=== PATIENT | female | born 1960 | race Caucasian/White ===

== ENCOUNTER 2016-06-15 22:47 | Emergency (ER) | payer OTHER ==
[~2016-06-15 22:47] MED LIST: ASP325 PO; BENZEPRIL PO; GLU500 PO; LASIX; NITROSTAT SL; PROSUD; VIC PO; ZIT250 PO; [UNRECOGNIZED DRUG - CODE]
[2016-06-15 23:33] LABS: BASOPHIL % 1.3 % (0-2); PLATELET COUNT 298 x10^3mcL (130-400); RED CELL DISTRIBUTION WIDTH 14.1 % (11.5-14.5)
[2016-06-15 23:42] LABS: CALCIUM 8.9 mg/dL (8.5-10.1); CHLORIDE SERUM 99 mmol/L (98-107); GFR1 > 60 mL/min; GLUCOSE SERUM 114 mg/dL (74-106); POTASSIUM SERUM 3.8 mmol/L (3.5-5.1); SODIUM SERUM 139 mmol/L (136-145)
[2016-06-15 23:58] LABS: ALBUMIN 3.8 g/dL (3.4-5.0); ALKALINE PHOSPHATASE 91 U/L (46-116); ALT/SGPT 14 U/L (14-59); AMYLASE 63 U/L (25-115); AST/SGOT 10 U/L (15-37); BILIRUBIN TOTAL 0.2 mg/dL (0.20-1.00); LIPASE 86 IU/L (73-393); TOTAL PROTEIN, SERUM 7.3 g/dL (6.4-8.2)
[2016-06-16 00:11] LABS: microscopic required? NO
[2016-06-16 00:20] LABS: UA SPECIFIC GRAVITY 1.025 (1.005-1.035); urine erythrocyte NEGATIVE (NEGATIVE)
[2016-06-16 02:51] VITALS: BP 129/59
== END 2016-06-16 02:51 | disposition home or self-care (01) ==
LOC: ED 22:47
PROVIDERS: Emergency Medicine
DX: F41.1 Generalized anxiety disorder (principal); D25.9 Leiomyoma of uterus, unspecified; R10.9 Unspecified abdominal pain; E11.9 Type 2 diabetes mellitus without complications; Z86.73 Personal history of transient ischemic attack (TIA), and cerebral infarction without residual deficits
CPT/HCPCS: 83880; J1885; Q0162

== ENCOUNTER 2016-07-10 22:09 | Emergency (ER) | payer OTHER ==
[2016-07-10 23:17] LABS: CHLORIDE SERUM 101 mmol/L (98-107); GFR1 > 60 mL/min; GLUCOSE SERUM 144 mg/dL (74-106); POTASSIUM SERUM 3.7 mmol/L (3.5-5.1); SODIUM SERUM 140 mmol/L (136-145)
[2016-07-10 23:21] LABS: ALKALINE PHOSPHATASE 71 U/L (46-116); ALT/SGPT 14 U/L (14-59); AST/SGOT 11 U/L (15-37); BILIRUBIN TOTAL 0.28 mg/dL (0.20-1.00); LIPASE 79 IU/L (73-393)
[2016-07-11 00:40] VITALS: BP 147/70
== END 2016-07-11 00:40 | disposition home or self-care (01) ==
LOC: ED 22:09
PROVIDERS: Emergency Medicine
DX: R51 Headache (principal); R10.10 Upper abdominal pain, unspecified

== ENCOUNTER 2016-07-11 01:08 | Emergency (ER) | payer OTHER ==
[2016-07-11 03:55] VITALS: BP 135/78
== END 2016-07-11 03:55 | disposition home or self-care (01) ==
LOC: ED 01:08
DX: S93.601A Unspecified sprain of right foot, initial encounter (principal); X58.XXXA Exposure to other specified factors, initial encounter; Y93.89 Activity, other specified; Y92.89 Other specified places as the place of occurrence of the external cause; Y99.8 Other external cause status

== ENCOUNTER 2016-07-25 17:56 | Emergency (ER) | payer OTHER ==
[2016-07-25 21:39] LABS: BASOPHIL % 0.9 % (0-2); PLATELET COUNT 234 x10^3mcL (130-400); RED CELL DISTRIBUTION WIDTH 14.3 % (11.5-14.5)
[2016-07-25 21:48] LABS: CALCIUM 8.9 mg/dL (8.5-10.1); CARBON DIOXIDE 31.2 mmol/L (21-32); CHLORIDE SERUM 100 mmol/L (98-107); CREATININE SERUM 0.8 mg/dL (0.6-1.0); GFR1 > 60 mL/min; GLUCOSE SERUM 90 mg/dL (74-106); POTASSIUM SERUM 3.7 mmol/L (3.5-5.1); SODIUM SERUM 137 mmol/L (136-145)
[2016-07-25 21:52] LABS: ALBUMIN 3.6 g/dL (3.4-5.0); ALKALINE PHOSPHATASE 86 U/L (46-116); ALT/SGPT 12 U/L (14-59); AMYLASE 49 U/L (25-115); AST/SGOT 10 U/L (15-37); BILIRUBIN TOTAL 0.4 mg/dL (0.20-1.00); LIPASE 68 IU/L (73-393); TOTAL PROTEIN, SERUM 6.7 g/dL (6.4-8.2)
[2016-07-25 21:59] LABS: microscopic required? NO
[2016-07-25 22:11] LABS: UA SPECIFIC GRAVITY 1.015 (1.005-1.035); urine erythrocyte NEGATIVE (NEGATIVE)
[2016-07-26 01:09] VITALS: BP 145/72
== END 2016-07-26 01:09 | disposition home or self-care (01) ==
LOC: ED 17:56
PROVIDERS: Emergency Medicine
DX: R10.84 Generalized abdominal pain (principal); I63.9 Cerebral infarction, unspecified; F17.210 Nicotine dependence, cigarettes, uncomplicated; Z98.890 Other specified postprocedural states
CPT/HCPCS: J2270; J2405; Q9967

== ENCOUNTER 2017-04-20 19:23 | Inpatient (IN) | payer OTHER ==
[~2017-04-20] VITALS: Ht 170.2 cm; Wt 111.8 kg
[2017-04-20] MEDS ORDERED: AMIODARONE HCL200 MG PO (20:05)
[2017-04-20] MEDS ORDERED: FUROSEMIDE40 MG PO (20:06)
[2017-04-20] MEDS ORDERED: ASPIR 8181 MG PO (20:06)
[2017-04-20] MEDS ORDERED: LEVETIRACETAM PO (20:07)
[2017-04-20] MEDS ORDERED: CARVEDILOL6.25 M1 PO (20:07)
[2017-04-20] MEDS ORDERED: POTASSIUM CHLO10 MEQ PO (20:07)
[2017-04-20] MEDS ORDERED: METFORMIN HCL500 MG PO (20:08)
[2017-04-20] MEDS ORDERED: LORAZEPAM0.5 MG PO (20:09)
[2017-04-20 20:10] LABS: BASOPHIL % 0.7 % (0-2); PLATELET COUNT 244 x10^3mcL (130-400); RED CELL DISTRIBUTION WIDTH 14.4 % (11.5-14.5)
[2017-04-20] MEDS ORDERED: GABAPENTIN100 M2 PO (20:10)
[2017-04-20 20:18] LABS: CARBON DIOXIDE 25.3 mmol/L (21-32); CREATININE SERUM 1.3 mg/dL (0.6-1.0); POTASSIUM SERUM 3.9 mmol/L (3.5-5.1)
[2017-04-20 20:27] LABS: ALBUMIN 3.5 g/dL (3.4-5.0); BILIRUBIN TOTAL 0.3 mg/dL (0.20-1.00); TOTAL PROTEIN, SERUM 6.8 g/dL (6.4-8.2)
[2017-04-20 21:41] LABS: CHOLESTEROL/HDL RATIO 4.2; MAGNESIUM 1.9 mg/dL (1.8-2.4)
[2017-04-20 21:44] LABS: microscopic required? NO
[2017-04-20 21:52] LABS: FREE T4 0.96 ng/dL (0.76-1.46); FREE THYROXINE INDEX 3.1 ug/dL (1.4-4.5)
[2017-04-20 21:53] LABS: T3 TOTAL 0.61 ng/mL
[2017-04-20 22:00] LABS: urine erythrocyte NEGATIVE (NEGATIVE)
[2017-04-20 22:01] VITALS: BP 148/83
[2017-04-20 22:09] LABS: AMPHETAMINE QUAL UR NONE DETECTED (NEG <=1000)
[2017-04-21 04:48] LABS: BASOPHIL % 0.4 % (0-2); PLATELET COUNT 216 x10^3mcL (130-400); RED CELL DISTRIBUTION WIDTH 14.3 % (11.5-14.5)
[2017-04-21 05:19] VITALS: BP 145/78
[2017-04-21 05:24] LABS: CARBON DIOXIDE 25.4 mmol/L (21-32); CREATININE SERUM 1.2 mg/dL (0.6-1.0); PHOSPHOROUS 4.7 mg/dL (2.5-4.9); POTASSIUM SERUM 4.3 mmol/L (3.5-5.1)
[2017-04-21 09:11] VITALS: BP 149/84
[2017-04-21 13:40] VITALS: BP 147/79
[2017-04-21 15:09] VITALS: BP 126/67
[2017-04-21 17:17] VITALS: BP 131/62
[2017-04-21 19:44] LABS: PLATELET COUNT 259 x10^3mcL (130-400); RED CELL DISTRIBUTION WIDTH 14.4 % (11.5-14.5)
[2017-04-21 19:48] LABS: BASOPHIL % 0 % (0-2)
[2017-04-21 21:42] VITALS: BP 120/74
[2017-04-22 06:18] VITALS: BP 121/71
[2017-04-22 06:41] LABS: CALCIUM 8.9 mg/dL (8.5-10.1); CARBON DIOXIDE 24.9 mmol/L (21-32); CREATININE SERUM 1.1 mg/dL (0.6-1.0); POTASSIUM SERUM 4.5 mmol/L (3.5-5.1)
[2017-04-22 06:56] LABS: BASOPHIL % 0.4 % (0-2); PLATELET COUNT 251 x10^3mcL (130-400); RED CELL DISTRIBUTION WIDTH 14.7 % (11.5-14.5)
[2017-04-22 09:53] VITALS: BP 110/53
[2017-04-22 11:30] VITALS: BP 136/76
[2017-04-22] MEDS ORDERED: MEDDP PO (12:16)
[2017-04-22] MEDS ORDERED: COUMADIN5 MG PO (12:19)
[2017-04-22 13:46] VITALS: BP 104/59
[2017-04-22] MEDS ORDERED: LIPI10 PO (14:39)
[2017-04-22 16:48] VITALS: BP 122/71
[2017-04-22 21:07] VITALS: BP 121/68
[2017-04-23 05:42] VITALS: BP 138/72
[2017-04-23 07:17] LABS: CALCIUM 8.9 mg/dL (8.5-10.1); CARBON DIOXIDE 27.1 mmol/L (21-32); CREATININE SERUM 1.2 mg/dL (0.6-1.0); POTASSIUM SERUM 4.5 mmol/L (3.5-5.1)
[2017-04-23 07:21] LABS: PLATELET COUNT 238 x10^3mcL (130-400)
[2017-04-23 07:22] LABS: BASOPHIL % 0 % (0-2); RED CELL DISTRIBUTION WIDTH 14.6 % (11.5-14.5)
[2017-04-23 09:35] VITALS: BP 134/61
[2017-04-23 12:54] VITALS: BP 149/88
[2017-04-23] MEDS ORDERED: ESCITALOPRAM10 M1 PO (15:03)
[2017-04-23] MEDS ORDERED: COR200 PO (16:33)
[2017-04-23 16:36] VITALS: BP 149/88
[2017-04-23 16:52] VITALS: Ht 170.2 cm; Wt 111.8 kg
[2017-04-23 17:37] VITALS: BP 140/70
== END 2017-04-23 18:05 | disposition home or self-care (01) | DRG 203 ==
LOC: ED 19:23 → DU 21:02
PROVIDERS: Emergency Medicine; Family Medicine; Family Medicine Sports Medicine
DX: M94.0 Chondrocostal junction syndrome [Tietze] (principal); N17.0 Acute kidney failure with tubular necrosis; I50.9 Heart failure, unspecified; D68.69 Other thrombophilia; I11.0 Hypertensive heart disease with heart failure; J44.1 Chronic obstructive pulmonary disease with (acute) exacerbation; E11.65 Type 2 diabetes mellitus with hyperglycemia; K21.9 Gastro-esophageal reflux disease without esophagitis; G47.33 Obstructive sleep apnea (adult) (pediatric); E78.5 Hyperlipidemia, unspecified; Z79.82 Long term (current) use of aspirin; Z68.28 Body mass index [BMI] 28.0-28.9, adult; Z87.891 Personal history of nicotine dependence; Z79.84 Long term (current) use of oral hypoglycemic drugs; Z86.73 Personal history of transient ischemic attack (TIA), and cerebral infarction without residual deficits; R56.9 Unspecified convulsions; I48.91 Unspecified atrial fibrillation; E02 Subclinical iodine-deficiency hypothyroidism; F41.1 Generalized anxiety disorder
CPT/HCPCS: 82962; 83880; 84439; 94150; A9500; J1644; J1885; J2060; J2270; J2785; J2920; J2930; J7030; J7620; J7633; Q0092; Q0163

== ENCOUNTER 2017-05-20 22:30 | Emergency (ER) | payer OTHER ==
[~2017-05-20] VITALS: Ht 175.3 cm; Wt 140.6 kg
[~2017-05-20 22:30] MED LIST changes: +AMIODARONE HCL200 MG PO; +ASPIR 8181 MG PO; +CARVEDILOL6.25 M1 PO; +COR200 PO; +COUMADIN5 MG PO; +ESCITALOPRAM10 M1 PO; +FUROSEMIDE40 MG PO; +GABAPENTIN100 M2 PO; +LEVETIRACETAM PO; +LIPI10 PO; +LORAZEPAM0.5 MG PO; +MEDDP PO; +METFORMIN HCL500 MG PO; +POTASSIUM CHLO10 MEQ PO
[2017-05-20 22:36] VITALS: Ht 175.3 cm; Wt 140.6 kg
[2017-05-21 00:28] LABS: BASOPHIL % 1.6 % (0-2); PLATELET COUNT 251 x10^3mcL (130-400)
[2017-05-21 00:44] LABS: CALCIUM 8.7 mg/dL (8.5-10.1); CARBON DIOXIDE 28.2 mmol/L (21-32); CREATININE SERUM 1.3 mg/dL (0.6-1.0); POTASSIUM SERUM 4.4 mmol/L (3.5-5.1)
[2017-05-21 01:29] VITALS: BP 162/92
== END 2017-05-21 01:50 | disposition home or self-care (01) ==
LOC: ED 22:30
PROVIDERS: Emergency Medicine
DX: R07.89 Other chest pain (principal); J44.9 Chronic obstructive pulmonary disease, unspecified; I10 Essential (primary) hypertension; E11.9 Type 2 diabetes mellitus without complications; I48.91 Unspecified atrial fibrillation; Z90.49 Acquired absence of other specified parts of digestive tract
CPT/HCPCS: 36415; 83880; Q0092

== ENCOUNTER 2017-05-21 02:00 | Emergency (ER) | payer OTHER ==
[~2017-05-21] VITALS: Ht 167.6 cm; Wt 140.6 kg
[2017-05-21 02:04] VITALS: Ht 167.6 cm; Wt 140.6 kg
[2017-05-21 02:46] VITALS: BP 186/143
== END 2017-05-21 02:46 | disposition home or self-care (01) ==
LOC: ED 02:00
DX: F41.9 Anxiety disorder, unspecified (principal); J44.9 Chronic obstructive pulmonary disease, unspecified; I50.9 Heart failure, unspecified; I10 Essential (primary) hypertension; E11.9 Type 2 diabetes mellitus without complications

== ENCOUNTER 2019-04-30 19:00 | Inpatient (IN) | payer MEDICAID ==
[~2019-04-30] VITALS: Ht 172.7 cm; Wt 107.5 kg
[2019-04-30 19:07] VITALS: Ht 172.7 cm; Wt 107.5 kg
[2019-04-30 19:34] LABS: BASOPHIL % 0.8 % (0-2); PLATELET COUNT 192 x10^3mcL (130-400); RED CELL DISTRIBUTION WIDTH 13.8 % (11.5-14.5)
[2019-04-30 19:42] LABS: CARBON DIOXIDE 29.2 mmol/L (21-32); CHLORIDE SERUM 104 mmol/L (98-107); CREATININE SERUM 0.9 mg/dL (0.6-1.0); GFR1 > 60 mL/min; GLUCOSE SERUM 94 mg/dL (74-106); SODIUM SERUM 139 mmol/L (136-145)
[2019-04-30 19:47] LABS: ALKALINE PHOSPHATASE 106 U/L (46-116); ALT/SGPT 14 U/L (14-59); AST/SGOT 12 U/L (15-37); BILIRUBIN TOTAL 0.3 mg/dL (0.20-1.00); MAGNESIUM 1.9 mg/dL (1.8-2.4); TOTAL PROTEIN, SERUM 6.3 g/dL (6.4-8.2)
[2019-04-30 19:48] LABS: ALBUMIN 3.2 g/dL (3.4-5.0)
[2019-04-30 22:00] VITALS: BP 119/86
[2019-04-30 22:17] VITALS: BP 127/85
[2019-05-01 06:18] VITALS: BP 151/69
[2019-05-01 09:04] VITALS: BP 141/79
[2019-05-01 12:09] VITALS: BP 115/61
[2019-05-01 16:13] VITALS: BP 150/86
[2019-05-01 20:05] VITALS: BP 105/54
[2019-05-02 04:31] VITALS: BP 152/97
[2019-05-02 06:29] LABS: BASOPHIL % 1.7 % (0-2); PLATELET COUNT 169 x10^3mcL (130-400); RED CELL DISTRIBUTION WIDTH 14.3 % (11.5-14.5)
[2019-05-02 06:54] LABS: CALCIUM 8.9 mg/dL (8.5-10.1); CARBON DIOXIDE 27.6 mmol/L (21-32); CHLORIDE SERUM 105 mmol/L (98-107); CREATININE SERUM 0.8 mg/dL (0.6-1.0); GFR1 > 60 mL/min; GLUCOSE SERUM 115 mg/dL (74-106); SODIUM SERUM 141 mmol/L (136-145)
[2019-05-02 08:46] VITALS: BP 147/70
[2019-05-02 13:52] VITALS: BP 147/82
[2019-05-02 17:49] VITALS: BP 142/79
[2019-05-02 20:39] VITALS: BP 135/87
[2019-05-03 05:19] VITALS: BP 140/80
[2019-05-03 09:09] VITALS: BP 154/94
[2019-05-03 13:16] VITALS: BP 111/76
[2019-05-03 16:42] VITALS: BP 140/88
== END 2019-05-03 17:43 | disposition home or self-care (01) | DRG 145 ==
LOC: ED 19:00 → DU 20:32
PROVIDERS: Emergency Medicine; ADMIT Internal Medicine
DX: R09.1 Pleurisy (principal); D68.69 Other thrombophilia; I11.0 Hypertensive heart disease with heart failure; I50.9 Heart failure, unspecified; I48.91 Unspecified atrial fibrillation; I69.351 Hemiplegia and hemiparesis following cerebral infarction affecting right dominant side; G40.909 Epilepsy, unspecified, not intractable, without status epilepticus; E11.9 Type 2 diabetes mellitus without complications; M79.7 Fibromyalgia; J44.9 Chronic obstructive pulmonary disease, unspecified; Z68.37 Body mass index [BMI] 37.0-37.9, adult; Z79.84 Long term (current) use of oral hypoglycemic drugs; Z79.01 Long term (current) use of anticoagulants
CPT/HCPCS: 83880; A9500; G0378; J2270; J2550; J2785; J7509; J7620; Q0092

== ENCOUNTER 2019-07-24 17:55 | Inpatient (IN) | payer OTHER ==
[~2019-07-24] VITALS: Ht 165.1 cm; Wt 109.8 kg
[2019-07-24 18:06] VITALS: Ht 165.1 cm; Wt 109.8 kg
[2019-07-24 19:12] LABS: BASOPHIL % 0.7 % (0-2); PLATELET COUNT 226 x10^3mcL (130-400); RED CELL DISTRIBUTION WIDTH 12.9 % (11.5-14.5)
[2019-07-24 19:22] LABS: ALBUMIN 3.4 g/dL (3.4-5.0); ALKALINE PHOSPHATASE 111 U/L (46-116); ALT/SGPT 10 U/L (14-59); AST/SGOT 17 U/L (15-37); BILIRUBIN TOTAL 0.29 mg/dL (0.20-1.00); CALCIUM 8.8 mg/dL (8.5-10.1); CARBON DIOXIDE 24.2 mmol/L (21-32); CHLORIDE SERUM 92 mmol/L (98-107); CREATININE SERUM 0.9 mg/dL (0.6-1.0); GFR1 > 60 mL/min; GLUCOSE SERUM 106 mg/dL (74-106); POTASSIUM SERUM 3.7 mmol/L (3.5-5.1); SODIUM SERUM 125 mmol/L (136-145)
[2019-07-24 19:24] LABS: TOTAL PROTEIN, SERUM 6.1 g/dL (6.4-8.2)
[2019-07-24 20:30] LABS: microscopic required? NO
[2019-07-24 20:48] LABS: urine erythrocyte NEGATIVE (NEGATIVE)
[2019-07-24 23:09] VITALS: BP 132/51
[2019-07-25 05:00] VITALS: BP 153/90
[2019-07-25 05:28] LABS: CALCIUM 8.6 mg/dL (8.5-10.1); CARBON DIOXIDE 24.3 mmol/L (21-32); CHLORIDE SERUM 96 mmol/L (98-107); CREATININE SERUM 0.7 mg/dL (0.6-1.0); GFR1 > 60 mL/min; GLUCOSE SERUM 95 mg/dL (74-106); POTASSIUM SERUM 3.6 mmol/L (3.5-5.1); SODIUM SERUM 129 mmol/L (136-145)
[2019-07-25 06:00] LABS: BASOPHIL % 1.7 % (0-2); PLATELET COUNT 181 x10^3mcL (130-400); RED CELL DISTRIBUTION WIDTH 12.7 % (11.5-14.5)
[2019-07-25 08:59] VITALS: BP 152/86
[2019-07-25 12:02] VITALS: BP 121/66
[2019-07-25 17:05] VITALS: BP 99/63
[2019-07-25 20:15] VITALS: BP 112/49
[2019-07-26 05:07] VITALS: BP 134/82
[2019-07-26 06:17] VITALS: BP 155/90
[2019-07-26 06:26] LABS: BASOPHIL % 1.4 % (0-2); PLATELET COUNT 181 x10^3mcL (130-400); RED CELL DISTRIBUTION WIDTH 12.9 % (11.5-14.5)
[2019-07-26 06:54] LABS: CALCIUM 8.9 mg/dL (8.5-10.1); CHLORIDE SERUM 100 mmol/L (98-107); CREATININE SERUM 0.8 mg/dL (0.6-1.0); GFR1 > 60 mL/min; GLUCOSE SERUM 92 mg/dL (74-106); POTASSIUM SERUM 3.5 mmol/L (3.5-5.1); SODIUM SERUM 134 mmol/L (136-145)
[2019-07-26 08:34] VITALS: BP 143/78
[2019-07-26 12:07] VITALS: BP 133/57
[2019-07-26 12:10] VITALS: BP 133/57
== END 2019-07-26 16:00 | disposition home or self-care (01) | DRG 426 ==
LOC: ED 17:55 → DU 18:13
PROVIDERS: Emergency Medicine; ADMIT Internal Medicine
DX: E87.1 Hypo-osmolality and hyponatremia (principal); I11.0 Hypertensive heart disease with heart failure; I50.9 Heart failure, unspecified; G40.909 Epilepsy, unspecified, not intractable, without status epilepticus; I48.91 Unspecified atrial fibrillation; E11.9 Type 2 diabetes mellitus without complications; F41.9 Anxiety disorder, unspecified; M60.9 Myositis, unspecified; J44.9 Chronic obstructive pulmonary disease, unspecified; I25.10 Atherosclerotic heart disease of native coronary artery without angina pectoris; M19.90 Unspecified osteoarthritis, unspecified site; Z82.49 Family history of ischemic heart disease and other diseases of the circulatory system; Z90.49 Acquired absence of other specified parts of digestive tract; Z79.84 Long term (current) use of oral hypoglycemic drugs
CPT/HCPCS: 82962; 97112-GP; G0378; J2060; J2270; J2550; J7030; J7509; Q0092

== ENCOUNTER 2019-08-30 09:07 | Inpatient (IN) | payer OTHER ==
[~2019-08-30] VITALS: Ht 172.7 cm; Wt 98.9 kg
[2019-08-30 09:19] VITALS: Ht 172.7 cm; Wt 98.9 kg
--- NOTE | 2019-08-30 09:30 | NUR ---
SONIA RICHARD [place]
--- NOTE | 2019-08-30 09:43 | NUR ---
RN TIMMY BEDSIDE FOR EKG
--- NOTE | 2019-08-30 09:45 | NUR ---
AWAKE ALERT ORIENTED, STATED CAME IN TO ER DUE TO HIGH BLOOD PRESSURE, BP NORMAL IN TRIAGE,
[2019-08-30 10:03] LABS: BASOPHIL % 0.7 % (0-2); PLATELET COUNT 204 x10^3mcL (130-400)
[2019-08-30 10:04] LABS: RED CELL DISTRIBUTION WIDTH 14.6 % (11.5-14.5)
[2019-08-30 10:17] LABS: CALCIUM 8.8 mg/dL (8.5-10.1); CARBON DIOXIDE 25.3 mmol/L (21-32); CHLORIDE SERUM 91 mmol/L (98-107); CREATININE SERUM 0.8 mg/dL (0.6-1.0); GFR1 > 60 mL/min; GLUCOSE SERUM 112 mg/dL (74-106); POTASSIUM SERUM 4.4 mmol/L (3.5-5.1); SODIUM SERUM 125 mmol/L (136-145)
[2019-08-30 10:22] LABS: ALBUMIN 3.9 g/dL (3.4-5.0); ALKALINE PHOSPHATASE 115 U/L (46-116); ALT/SGPT 15 U/L (14-59); AST/SGOT 25 U/L (15-37); BILIRUBIN TOTAL 0.7 mg/dL (0.20-1.00); TOTAL PROTEIN, SERUM 6.8 g/dL (6.4-8.2)
--- NOTE | 2019-08-30 10:40 | NUR ---
PT AMBULATED TO RESTROOM WITH A STEADY GAIT AND BACK TO [facility] WITHOUT INCIDENT.
--- NOTE | 2019-08-30 11:03 | NUR ---
DR ZHOU DISCUSSING PLAN OF CARE TO PATIENT AT BEDSIDE. PT TO BE ADMITTED. PT AWARE.
--- NOTE | 2019-08-30 11:07 | NUR ---
PERSONAL BELONGINGS LIST COMPLETED, PT UNABLE TO RECALL MEDS AND DOSAGES.
[2019-08-30 12:08] VITALS: BP 161/103
--- NOTE | 2019-08-30 12:27 | NUR ---
BED NOT AVAILABLE AT THIS TIME ON TELE UNIT, PT MADE AWARE. IV FLUIDS INFUSING NO INFILTRATION OR PAIN NOTED. PT IN POSITION OF COMFORT IN ER [facility], NO DISTRESS NOTED, RESP E/U. UPON ENTERING ROOM PT WAS ASLEEP, EASILY AROUSABLE. WILL CONT TO MONITOR.
--- NOTE | 2019-08-30 13:55 | NUR ---
PT AMBULATED TO RESTROOM AND BACK WITH A STEADY GAIT ACCOMPANIED BY GIANNA CALIXTO.
--- NOTE | 2019-08-30 14:18 | NUR ---
GAVE REPORT TO NOE HERRERA ON TELE UNIT, PER RN PT BLOOD PRESSURE IS TOO HIGH TO ADMIT.
--- NOTE | 2019-08-30 14:22 | NUR ---
SPOKE TO DR DEVON WHITING, ADVISED OF PT VITAL SIGN, RECIVED VERBAL ORDER FROM DR OTOOLE TO GIVE CLONIDINE 0.1MG PO ONCE.
--- NOTE | 2019-08-30 14:30 | NUR ---
PT REPORTED HER LOWER BACK IS PAIN, STATED /, PT STATED "I USUALLY TAKE NORCO AT HOME."
--- NOTE | 2019-08-30 14:35 | NUR ---
MEDICATED PT PER MD ORDERS SEE EMAR. PT ON FULL CM, WILL CONT TO MONITOR.
--- NOTE | 2019-08-30 15:10 | NUR ---
PT PLACED ON BEDPAN AT THIS TIME, PT TOLERATED WELL.
--- NOTE | 2019-08-30 15:26 | NUR ---
SPOKE TO NOE HERRERA ON TELE UNIT, NOTIFIED OF NEW VITAL SIGNS, OK TO SEND PT TO TELE UNIT AT THIS TIME.
[2019-08-30 16:22] VITALS: BP 157/92
--- NOTE | 2019-08-30 16:28 | NUR ---
C/O BACK PAIN ON 11/07; MORPHINE 1MG IVP GIVEN. CONTINUE MONITOR.
--- NOTE | 2019-08-30 16:34 | NUR ---
RECEIVED PT FROM ER, PT ADMIT FOR HYPONATREMIA, PT IS A/O X4, VERBAL RESPONSIVE. LUNG SOUND CLEAR BILATERAL, NO COUGH, NO SOB. PT IS ON TELE 17, A.FIB, PT DENY ANY CHEST PAIN AT THIS MOMENT, BOWEL SOUND PRESENT ALL 4 QUARANTS, NO DISTENTION, NO TENDER. PEDAL PULSE PRESENT BOTH FEET, +3 EDEMA RLE, +2 LLE, IV AT LEFT FA, NO LEAKING, NO INFILTRAIOTN. PT HAS RIGHT SIDE WEAKNESSS, DUE TO HX CVA, ALL ADLS ASSIST, ALL NEED MET, CALL LIGHT IN REACH, WILL CONTINUE TO MONITOR.
--- NOTE | 2019-08-30 19:02 | NUR ---
C/O BACK PAIN ON 09/07; NORCO 5/325 PO GIVEN. PATIENT VOID X3 VIA BRP. AMBULATORY. TOLERATED CCHO DIET DINNER. ENDORSED CARE TO [facility] NURSE.
--- NOTE | 2019-08-30 19:30 | NUR ---
PT IS A/O x4. TELE #17, NSR. DENIES ANY CHEST PAIN AT THIS TIME. PULSES ARE PRESENT. EDEMA NOTED ON BLE. LUNGS CLEAR IN ALL FEILDS. ON RA, DENIES ANY SOB. EQUAL CHEST RISE AND FALL. NO SIGN OF RESP DISTRESS. BOWEL SOUNDS ARE PRESENT. WEAKNESS ON RUE NOTED. NO OTHER DEFICITS. SKIN WARM AND INTACT. IV ON LFA IS NOTED TO BE INFILTRATED. IV STOPPED. NEW IV WILL BE INSERTED. DENIES ANY PAIN. BED IS AT LOWEST SETTING. CALL LIGHT WITHIN REACH. WILL CONTINUE TO MOTNIOR.
--- NOTE | 2019-08-30 21:43 | NUR ---
ENDORSED ALL CARE TO DAVID HERRERA. PT RESTING IN BED. NO DISTRESS NOTED.
[2019-08-30 21:47] VITALS: BP 139/68
--- NOTE | 2019-08-30 21:57 | NUR ---
PT RECIEVED SLEEPING BUT EASILY AROUSABLE,CALL LIGHT EASY REACHED AND WILL CONTINUE TO MONITOR.
--- NOTE | 2019-08-31 03:06 | NUR ---
PT SLEEPING SOUNDLY AND WILL CONTINUE TO MONITOR.
[2019-08-31 05:50] VITALS: BP 170/90
[2019-08-31 06:30] LABS: BASOPHIL % 0.8 % (0-2); PLATELET COUNT 186 x10^3mcL (130-400)
[2019-08-31 06:39] LABS: CALCIUM 8.7 mg/dL (8.5-10.1); CARBON DIOXIDE 24.5 mmol/L (21-32); CHLORIDE SERUM 95 mmol/L (98-107); CREATININE SERUM 0.8 mg/dL (0.6-1.0); GFR1 > 60 mL/min; GLUCOSE SERUM 101 mg/dL (74-106); POTASSIUM SERUM 3.7 mmol/L (3.5-5.1); SODIUM SERUM 130 mmol/L (136-145)
--- NOTE | 2019-08-31 06:40 | NUR ---
PT HAD A RESTING NIGHT NO CHNAGE AT THIS TIME,WILL CONTINUE TO MONITOR.
[2019-08-31 07:31] VITALS: BP 149/79
--- NOTE | 2019-08-31 08:00 | NUR ---
SHIFT ASSESSMENT DONE PATIENT A/A/OX4; TELE#17; A FIB. HR = 70'S TO 90'S. DENIED CHEST PAIN. NO RESP DISTRESS ON RA. O2 SAT 97%. TOLERATED CCHO DIET. C/O BACK PAIN ON 01/07. MORPHINE GIVEN AT 6AM BY [facility] NURSE. NURCO WOULD BE GIVEN. AMBULATORY. IVF OF NS 70CC/HR. IV TO RFA PATENT. TOLERATED CCHO DIET BREAKFAST. CALL LIGHT IN REACH.
[2019-08-31 12:15] VITALS: BP 134/61
--- NOTE | 2019-08-31 14:40 | NUR ---
DR. WHITING SAW PATIENT. PATIENT WALKED WITH PHYSICAL THERAPIST.
[2019-08-31 16:10] VITALS: BP 113/65
--- NOTE | 2019-08-31 18:28 | NUR ---
CHRONIC BACK PAIN. ASKED MORPHINE AND NORCO. OTHER CONDITION STABLE. BRP WITHOUT ASSIST. GAIT STEADY. ENDORSED CARE TO NOC NURSE.
--- NOTE | 2019-08-31 19:20 | NUR ---
RECEIVED REPORT FROM KARISSA HERRERA. WILL RESUME CARE.
[2019-08-31 20:31] VITALS: BP 169/71
--- NOTE | 2019-08-31 21:28 | NUR ---
RECEIVED PT AA0X4, SPEECH CLEAR. ABLE TO FOLLOW COMMANDS AND MAKE NEEDS KNOWN. NO REDNESS, DRAINAGE, OR SWELLING TO EENT. BREATHING E/U. ON RA. LUNG SOUNDS CTA. S1S2 AUSCULTATED. PT STATES NO CHEST PAIN AT THIS TIME. CAP REFILL <3 SEC. +3 PITTING EDEMA NOTED TO BLE'S. MILD GENERALIZED WEAKNESS. JOINTS INTACT. ON CCHO DIET. NO N/V. BS ACTIVE X 4. ABDOMEN OBESE, NONTENDER. PT VOIDS FREELY AND STATES NO URINARY COMPLAINTS. SKIN CDI. PT CALM RESTING IN BED AT THIS TIME. WILL CONTINUE TO MONITOR.
--- NOTE | 2019-08-31 23:16 | NUR ---
PT C/O OF 09/07 BACK PAIN. GIVEN NORCO 5/325 1 TAB PO. WILL REASSESS FOR RELIEF OF PAIN.
[2019-09-01 04:46] VITALS: BP 123/79
--- NOTE | 2019-09-01 07:40 | NUR ---
RECEIVED PT FROM STRAIGHTENER RN. AOX4 ABLE TO MAKE NEEDS KNOWN. RESP E/U. DENIES SOB/COUGH. ON TELE 17. EDEMA TO RLE +3 AND LLE +2 CAP REFILL <3, SKIN WARM/DRY. LUNGS CTA. ABDOMEN SOFT/ROUND, DENIES N/V/D. VOIDS FREELY, AMBULATES PER BRP. SKIN INTACT, DENIES PAIN AT THIS TIME. IV TO RFA PATENT, NO REDNESS OR SWELLING NOTED. CALL LIGHT IN REACH, WILL CONTINUE TO MONITOR.
[2019-09-01 07:57] VITALS: BP 164/63
--- NOTE | 2019-09-01 08:34 | NUR ---
PT MEDICATED FOR PAIN WITH MORPHINE, ALL MEDICATION TAKEN AND TOLERATED WELL. CALL LIGHT IN REACH, WILL CONTINUE TO MONITOR.
--- NOTE | 2019-09-01 10:09 | NUR ---
PT MEDICATED WITH ATIVAN FOR C/O ANXIETY. WILL CONTINUE TO MONITOR.
[2019-09-01 11:59] VITALS: BP 132/67
--- NOTE | 2019-09-01 12:02 | NUR ---
PT RECEIVED DC INSTRUCTION, PT AWARE OF MEDICATION TO CONTINUE TAKING AT HOME AND OF F/U APPT. PT REQUESTED INFORMATION TO BE SHARED WITH FRIEND (SONIA) AND WAS CALLED AND ALSO GIVEN INFORMATION. ALL QUESTIONS ANSWERED, NO CONCERNS. NO COMPLICATIONS OCCURRED DURING DISCHARGE. IV DC'D CATHETER INTACT. PT WAITING FOR FRIEND TO SHAREPOINT SPECIALIST.
[2019-09-01 12:57] VITALS: BP 164/63
== END 2019-09-01 14:11 | disposition home or self-care (01) | DRG 426 ==
LOC: ED 09:07 → DU 11:14
PROVIDERS: Emergency Medicine; ADMIT Internal Medicine; ATTEND Internal Medicine
DX: E87.1 Hypo-osmolality and hyponatremia (principal); I11.0 Hypertensive heart disease with heart failure; I50.9 Heart failure, unspecified; E86.0 Dehydration; I48.91 Unspecified atrial fibrillation; F17.210 Nicotine dependence, cigarettes, uncomplicated; E11.9 Type 2 diabetes mellitus without complications; F41.9 Anxiety disorder, unspecified; J44.9 Chronic obstructive pulmonary disease, unspecified; M54.5 Low back pain; G89.29 Other chronic pain; M19.90 Unspecified osteoarthritis, unspecified site; Z90.49 Acquired absence of other specified parts of digestive tract; Z79.899 Other long term (current) drug therapy; Z86.73 Personal history of transient ischemic attack (TIA), and cerebral infarction without residual deficits
CPT/HCPCS: 82962; 83880; G0378; J2060; J2270; J7030; Q0092

== ENCOUNTER 2020-04-10 18:00 | Inpatient (IN) | payer OTHER ==
[~2020-04-10] VITALS: Ht 172.7 cm; Wt 113.4 kg
[2020-04-10 18:34] VITALS: Ht 172.7 cm; Wt 113.4 kg
--- NOTE | 2020-04-10 18:38 | NUR ---
CALLED TO [facility] ,PT WAS UNRESPONSIVE VERBALLY,BY USING AMONIA INHALATION WAKED UP BUT STILL ALTERD ,WAS BROUGHT BY [employer] DEVELOPER WHO LEFT PT IN WR
[2020-04-10 19:25] LABS: BASOPHIL % 1.4 % (0.2-1.3); PLATELET COUNT 219 x10^3mcL (179-408)
[2020-04-10 19:30] LABS: RED CELL DISTRIBUTION WIDTH 15.4 % (12.3-17.7)
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
[2020-04-10 19:59] LABS: CALCIUM 8.5 mg/dL (8.5-10.1); CARBON DIOXIDE 25.5 mmol/L (21-32); CHLORIDE SERUM 94 mmol/L (98-107); CREATININE SERUM 1.1 mg/dL (0.6-1.0); GFR1 54 mL/min; GLUCOSE SERUM 128 mg/dL (74-106); POTASSIUM SERUM 4.1 mmol/L (3.5-5.1); SODIUM SERUM 128 mmol/L (136-145)
[2020-04-10 20:04] LABS: ALBUMIN 3.2 g/dL (3.4-5.0); ALKALINE PHOSPHATASE 99 U/L (46-116); ALT/SGPT 17 U/L (14-59); AST/SGOT 17 U/L (15-37); BILIRUBIN TOTAL 0.3 mg/dL (0.20-1.00); C REACTIVE PROTEIN 0.5 mg/dL (<=0.9); LACTIC DEHYDROGENASE (LDH) 187 U/L (100-190); TOTAL PROTEIN, SERUM 6.1 g/dL (6.4-8.2)
--- NOTE | 2020-04-10 21:40 | NUR ---
PT ASLEEP IN [facility]. RESP E/U, NAD NOTED. EASILY AROUSABLE. VSS.
--- NOTE | 2020-04-11 01:50 | NUR ---
IV NS INFUSING ORDERED. ADMINISTRATION DELAYED DUE TO DIFFICULT IV INSERTION.
[2020-04-11 03:53] LABS: microscopic required? NO
--- NOTE | 2020-04-11 04:45 | NUR ---
PT ASLEEP IN [facility]. RESP E/U, NAD NOTED. EASILY AROUSABLE. PT NOTED TO BE HYPERTENSIVE, 182/104 R ARM 184/91 L ARM, DR BEDOYA WITH [facility] PAGED.
[2020-04-11 04:51] LABS: UA SPECIFIC GRAVITY >=1.030 (1.005-1.035); urine erythrocyte NEGATIVE (NEGATIVE)
--- NOTE | 2020-04-11 05:10 | NUR ---
PRN CLONIDINE O.1MG PO GIVEN FOR BP 182/104.
--- NOTE | 2020-04-11 05:40 | NUR ---
PT ABLE TO AMBULATE TO RESTROOM AND BACK INDEPENDENTLY WITH STEADY GAIT
--- NOTE | 2020-04-11 06:13 | NUR ---
PRN NORCO 5/325 GIVEN FOR 8/10 BACK PAIN. SEE EMAR.
[2020-04-11 07:09] LABS: BASOPHIL % 1.2 % (0.2-1.3); PLATELET COUNT 212 x10^3mcL (179-408)
[2020-04-11 07:11] LABS: CALCIUM 7.1 mg/dL (8.5-10.1); CARBON DIOXIDE 26.5 mmol/L (21-32); CHLORIDE SERUM 101 mmol/L (98-107); CREATININE SERUM 0.8 mg/dL (0.6-1.0); GFR1 > 60 mL/min; GLUCOSE SERUM 90 mg/dL (74-106); MAGNESIUM 1.4 mg/dL (1.8-2.4); POTASSIUM SERUM 3.5 mmol/L (3.5-5.1); SODIUM SERUM 133 mmol/L (136-145)
[2020-04-11 07:15] LABS: RED CELL DISTRIBUTION WIDTH 14.9 % (12.3-17.7)
--- NOTE | 2020-04-11 07:24 | NUR ---
RECEIVED REPORT FROM YURY, ASSUMING CARE OF PT AT THIS TIME
--- NOTE | 2020-04-11 09:30 | NUR ---
RECEIVED REPORT FROM YAMILA
--- NOTE | 2020-04-11 13:11 | NUR ---
DR. NEGRETE AT BEDSIDE WITH UPDATE OF POC
[2020-04-11 13:25] VITALS: BP 140/81
--- NOTE | 2020-04-11 13:26 | NUR ---
PT AMBULATING IN THE HALWAY WITH STEADY GAIT, REDIRECTED TO HER BED, AAOX4, AMELIE ACUTE DISTRESS NOTED, INSTRUCTED PT NOT TO WALK AROUND IN THE HALLWAY, PLACED NON-SKID ROCKS IN PT, WILL MONITOR.
[2020-04-11] MEDS ORDERED: XARELTO20 M1 PO (13:36)
[2020-04-11] MEDS ORDERED: LISINOPRIL5 MG PO (13:36)
[2020-04-11] MEDS ORDERED: ESCITALOPRAM OX10 MG PO (13:37)
== END 2020-04-11 17:20 | disposition home or self-care (01) | DRG 426 ==
LOC: ED 18:00 → DU 22:53
PROVIDERS: Emergency Medicine; ADMIT Internal Medicine; ATTEND Internal Medicine
DX: E87.1 Hypo-osmolality and hyponatremia (principal); I42.9 Cardiomyopathy, unspecified; E66.01 Morbid (severe) obesity due to excess calories; I48.91 Unspecified atrial fibrillation; I11.0 Hypertensive heart disease with heart failure; I50.9 Heart failure, unspecified; G40.909 Epilepsy, unspecified, not intractable, without status epilepticus; E11.9 Type 2 diabetes mellitus without complications; Z20.822 Contact with and (suspected) exposure to COVID-19; Z86.73 Personal history of transient ischemic attack (TIA), and cerebral infarction without residual deficits; F41.9 Anxiety disorder, unspecified; Z90.49 Acquired absence of other specified parts of digestive tract; J44.9 Chronic obstructive pulmonary disease, unspecified; F17.200 Nicotine dependence, unspecified, uncomplicated; Z71.3 Dietary counseling and surveillance; Z68.38 Body mass index [BMI] 38.0-38.9, adult; I25.10 Atherosclerotic heart disease of native coronary artery without angina pectoris; Z82.49 Family history of ischemic heart disease and other diseases of the circulatory system; M54.9 Dorsalgia, unspecified; G89.29 Other chronic pain; Z79.899 Other long term (current) drug therapy; Z79.82 Long term (current) use of aspirin
CPT/HCPCS: 36600; 82962; 83880; 85378; 87804; 99406; G0378; J1650; J7030; U0003